=== PATIENT | female | born 1960 | race Caucasian/White ===

== ENCOUNTER 2023-07-17 19:04 | Emergency (ER) | payer MEDICAID ==
[~2023-07-17] VITALS: Ht 157.5 cm; Wt 63.5 kg
[2023-07-17 19:07] VITALS: BP 119/90; PULSE 66; RESP 18; TEMP 97.9; O2SAT 99
[2023-07-17 22:34] VITALS: TEMP 97.9; O2SAT 99
[2023-07-17] MEDS: diazePAM 5 MG TAB PO ONE (22:56)
[2023-07-17] MEDS: KETOROLAC 30 MG/ML VIAL IM ONE (22:56)
[2023-07-17] MEDS ORDERED: NAPR-1704 PO (23:25)
[2023-07-17 23:37] VITALS: BP 157/70; PULSE 57; RESP 16
== END 2023-07-17 23:37 | disposition home or self-care (01) ==
LOC: MED 19:04
DX: M75.31 Calcific tendinitis of right shoulder (principal); Z79.899 Other long term (current) drug therapy
CPT/HCPCS: 73030; 96372; 99283; J1885

== ENCOUNTER 2023-09-15 21:28 | Emergency (ER) | payer OTHER, MEDICAID ==
[~2023-09-15] VITALS: Ht 157.5 cm; Wt 68.0 kg
[~2023-09-15 21:28] MED LIST: NAPR-1704 PO
[2023-09-15 22:19] VITALS: BP 158/79; PULSE 51; RESP 20; TEMP 98; O2SAT 98
[2023-09-16] MEDS ORDERED: diazePAM 5 MG TAB PO ONE (02:05)
[2023-09-16] MEDS ORDERED: KETOROLAC 30 MG/ML VIAL IM ONE (02:05)
[2023-09-16] MEDS ORDERED: CYCL-711 PO (02:34)
[2023-09-16] MEDS ORDERED: ACET-10509 PO (02:34)
[2023-09-16 03:11] VITALS: O2SAT 98
== END 2023-09-16 03:15 | disposition home or self-care (01) ==
LOC: MED 21:28
DX: S39.012A Strain of muscle, fascia and tendon of lower back, initial encounter (principal); R07.89 Other chest pain; E11.9 Type 2 diabetes mellitus without complications; I10 Essential (primary) hypertension; Z79.4 Long term (current) use of insulin; Z79.899 Other long term (current) drug therapy; V49.88XA Car occupant (driver) (passenger) injured in other specified transport accidents, initial encounter; Y93.89 Activity, other specified; Y92.89 Other specified places as the place of occurrence of the external cause; Y99.8 Other external cause status
CPT/HCPCS: 71046; 72100; 82948; 96372; 99284; J1885